=== PATIENT | male | born 1985 | race Caucasian/White ===

== ENCOUNTER → 2017-05-17 | Outpatient (CLI) | payer BC ==
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
== END | disposition home or self-care (01) ==
LOC: SLEEP 10:48
PROVIDERS: ATTEND Internal Medicine
DX: G47.33 Obstructive sleep apnea (adult) (pediatric) (principal); E66.9 Obesity, unspecified; M54.2 Cervicalgia; Z79.1 Long term (current) use of non-steroidal anti-inflammatories (NSAID); Z79.899 Other long term (current) drug therapy; Z68.43 Body mass index [BMI] 50.0-59.9, adult
CPT/HCPCS: 99211

== ENCOUNTER → 2017-07-14 | Outpatient (CLI) | payer OTHER, BC | END | disposition home or self-care (01) | LOC: RADMRIMAIN 09:49 | PROVIDERS: ATTEND Family Medicine | DX: Z53.9 Procedure and treatment not carried out, unspecified reason (principal) ==

== ENCOUNTER → 2017-08-07 | Outpatient (CLI) | payer OTHER, BC ==
--- NOTE | 2017-08-07 07:24 | MR ---
EXAMINATION TYPE: MR cervical spine wo con DATE OF EXAM: 08/07/2017 COMPARISON: NONE HISTORY: Cervicalgia TECHNIQUE: Multiplanar, multisequence images of the cervical spine were acquired. C2-C3: There is posterior spondylosis but no disc herniation or canal stenosis. No foraminal encroach ment. C3-C4: No evidence for degenerative disc disease. No disc bulge/herniation or protrusion. No Canal stenosis. Foramina are patent bilaterally. C4-C5: No evidence for degenerative disc disease. No disc bulge/herniation or protrusion. No Canal stenosis. Foramina are patent bilaterally. C5-C6: No evidence for degenerative disc disease. No disc bulge/herniation or protrusion. No Canal stenosis. Foramina are patent bilaterally. C6-C7: Mild central disc bulging but no canal stenosis or foraminal encroachment. Neural foramina pat ent. C7-T1: No evidence for degenerative disc disease. No disc bulge/herniation or protrusion. No Canal stenosis. Foramina are patent bilaterally. Cervical segments are intact. There is normal alignment. Cervical spinal cord is of immediate asses sment due to artifact. The question of abnormal signal along the posterior margin of the C5-C6 level. This may be artifactual.. Craniovertebral junction relationships are within normal limits. IMPRESSION: 1. Disc bulging C6-C7 with no canal stenosis or foraminal encroachment. 2. Limited assessment of the spinal cord due to artifact. Question of abnormal signal along the posterior margin of the C5-C6 level. This may be artifactual. G gary the limitation exam and the degree of artifact recommend short-term follow-up with contrast. Cor relate clinically to exclude myelitis.
== END ==
LOC: RADMRIMAIN 06:15
PROVIDERS: ATTEND Family Medicine
DX: M50.223 Other cervical disc displacement at C6-C7 level (principal)
CPT/HCPCS: 72141

== ENCOUNTER 2018-05-12 23:47 | Emergency (ER) | payer BC, OTHER ==
[2018-05-13] MEDS ORDERED: IBUPROFEN 600 MG TAB PO STA (01:17)
[2018-05-13] MEDS ORDERED: SODIUM CHLORIDE 0.9% 1,000 ML IV STA (01:17)
[2018-05-13] MEDS ORDERED: ACETAMINOPHEN TAB 500 MG TAB PO STA (01:17)
[2018-05-13] MEDS ORDERED: SODIUM CHLORIDE 0.9% 1,000 ML IV ONE (01:18)
[2018-05-13] MEDS ORDERED: SODIUM CHLORIDE 0.9% 1,000 ML IV SCH (01:30)
[2018-05-13] MEDS ORDERED: KETOROLAC 30 MG/ML 1 ML VIAL IVP STA (01:35)
[2018-05-13] MEDS ORDERED: HYDROcodone/APAP 5-325MG 1 EACH TAB PO STA (02:30)
[2018-05-13 02:45] LABS: Basophils # (A) 0.1 k/uL (0-0.2); Basophils % (A) 0 %; Eosinophils # (A) 0.2 k/uL (0-0.7); Eosinophils % (A) 1 %; HCT 44.2 % (39.0-53.0); HGB 14.8 gm/dL (13.0-17.5); Lymphocytes # (A) 1.9 k/uL (1.0-4.8); Lymphocytes % (A) 12 %; MCH 28.3 pg (25.0-35.0); MCHC 33.4 g/dL (31.0-37.0); MCV 84.7 fL (80.0-100.0); Monocytes # (A) 0.8 k/uL (0-1.0); Monocytes % (A) 5 %; Neutrophils # (A) 12.4 k/uL (1.3-7.7); Neutrophils % (A) 80 %; Platelet Count 280 k/uL (150-450); RBC 5.22 m/uL (4.30-5.90); RDW 14.1 % (11.5-15.5); WBC 15.5 k/uL (3.8-10.6)
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
[2018-05-13 02:58] LABS: ALT 41 U/L (21-72); AST 24 U/L (17-59); Albumin 3.9 g/dL (3.5-5.0); Alkaline Phosphatase 98 U/L (38-126); Anion Gap 7 mmol/L; Blood Urea Nitrogen 17 mg/dL (9-20); Calcium 9.4 mg/dL (8.4-10.2); Carbon Dioxide 24 mmol/L (22-30); Chloride 107 mmol/L (98-107); Glucose 106 mg/dL (74-99); Potassium 4.3 mmol/L (3.5-5.1); Sodium 138 mmol/L (137-145); Total Bilirubin 0.3 mg/dL (0.2-1.3); Total Protein 6.7 g/dL (6.3-8.2)
[2018-05-13 03:38] VITALS: BP 135/68; PULSE 104; RESP 16; TEMP 98.6
[2018-05-13 03:43] LABS: Appearance,Urine Clear (Clear); Bilirubin,Urine Negative (Negative); Blood,Urine Negative (Negative); Color,Urine Yellow; Glucose,Urine (UA) Negative (Negative); Ketones,Urine Negative (Negative); Leukocyte Esterase,Urine Negative (Negative); Nitrite,Urine Negative (Negative); Protein,Urine Negative (Negative); Specific Gravity,Urine 1.018 (1.001-1.035); Urobilinogen,Urine <2.0 mg/dL (<2.0)
== END 2018-05-13 04:15 | disposition home or self-care (01) ==
LOC: EC 05-13 01:40
DX: T67.5XXA Heat exhaustion, unspecified, initial encounter (principal); R00.0 Tachycardia, unspecified; Z86.14 Personal history of Methicillin resistant Staphylococcus aureus infection; Z88.0 Allergy status to penicillin; Z53.20 Procedure and treatment not carried out because of patient's decision for unspecified reasons; X32.XXXA Exposure to sunlight, initial encounter; Y92.814 Boat as the place of occurrence of the external cause
CPT/HCPCS: 36415; 93005; 80053; 84484; 85025; 81003; 99284; 96374; 96361 ×2; J1885

== ENCOUNTER → 2019-05-15 | Outpatient (CLI) | payer BC ==
--- NOTE | 2019-05-15 09:52 | XR ---
EXAMINATION TYPE: XR KUB DATE OF EXAM: 05/15/2019 9:23 AM CLINICAL HISTORY: Right flank pain for 4 days. TECHNIQUE: Two supine KUB images of the abdomen are obtained. COMPARISON: None. FINDINGS: Scattered gas is seen in non-distended stomach and small bowel loops. Gas and fecal materia l is seen in non-distended colon. The visualized osseous structures are intact. IMPRESSION: No definite nephrolithiasis. Overall nonobstructive bowel gas pattern.
== END | disposition home or self-care (01) ==
LOC: RADXRMAIN 09:09
PROVIDERS: ATTEND Family Medicine
DX: R14.3 Flatulence (principal)
CPT/HCPCS: 74018

== ENCOUNTER → 2019-10-02 | Outpatient (CLI) | payer BC ==
--- NOTE | 2019-10-02 11:16 | FL ---
EXAMINATION TYPE: FL barium swallow DATE OF EXAM: 10/02/2019 CLINICAL HISTORY: Gastroesophageal reflux in the supine position. TECHNIQUE: A double contrast esophagram is performed utilizing air and barium. A total of 2.02 marissa nicole of fluoroscopic time was utilized during procedure. 41 fluoroscopic images were saved. COMPARISON: None FINDINGS: The esophagus shows normal motility and emptying into the stomach. No evidence of hiatal h ernia or stricture noted. Severe gastroesophageal reflux was seen during real time performance of thi s study in the supine position to the level of the clavicles. IMPRESSION: Severe gastroesophageal reflux to the level the clavicles on the supine position without hiatal hernia or stricture seen.
== END | disposition home or self-care (01) ==
LOC: RADUSWWP 09:24
PROVIDERS: ATTEND Otolaryngology
DX: K21.9 Gastro-esophageal reflux disease without esophagitis (principal)
CPT/HCPCS: 74220

== ENCOUNTER 2021-07-09 14:17 | Emergency (ER) | payer BC ==
[2021-07-09 14:27] VITALS: RESP 18
[2021-07-09] MEDS ORDERED: SODIUM CHLORIDE 0.9% 500 ML 500 ML IV STA (14:51)
[2021-07-09] MEDS ORDERED: ONDANSETRON 4 MG/2 ML VIAL IVP STA (14:51)
[2021-07-09] MEDS ORDERED: MECLIZINE 12.5 MG TAB PO STA (14:51)
[2021-07-09 15:36] LABS: Basophils # (A) 0.1 k/uL (0-0.2); Basophils % (A) 1 %; Eosinophils # (A) 0.2 k/uL (0-0.7); Eosinophils % (A) 2 %; HCT 48.2 % (39.0-53.0); HGB 16.1 gm/dL (13.0-17.5); Lymphocytes # (A) 2.4 k/uL (1.0-4.8); Lymphocytes % (A) 21 %; MCH 28.9 pg (25.0-35.0); MCHC 33.5 g/dL (31.0-37.0); MCV 86.3 fL (80.0-100.0); Mean Platelet Volume 7.3; Monocytes # (A) 0.8 k/uL (0-1.0); Monocytes % (A) 7 %; Neutrophils % (A) 68 %; Platelet Count 265 k/uL (150-450); RBC 5.59 m/uL (4.30-5.90); RDW 13.9 % (11.5-15.5); WBC 11.7 k/uL (3.8-10.6)
--- NOTE | 2021-07-09 15:40 | ED ---
Dizziness HPI - General Source: patient Mode of arrival: wheelchair Limitations: no limitations <Deven Tran - Last Filed: 07/09/21 17:27> <Kamryn Pulido - Last Filed: 07/10/21 01:19> - General Chief Complaint: Dizziness Stated Complaint: SOB, Dizziness Time Seen by Provider: 07/09/21 14:37 - History of Present Illness Initial Comments: 35-year-old male presenting to the emergency department with the chief complaint of dizziness. Patient states his symptoms have been coming on and off for the past week. States it feels like the room was spinning around him and is associated with nausea but has no vomiting episodes. He denies any lightheadedness or loss of consciousness. States that he woke up this morning and began to feel diaphoretic but had no chest pain. States he did feel a bit short of breath like he cannot take a deep breath. He reports that dizziness is worse whenever he is laying down in the last for a few hours prior to resolution. No previous history of vertigo. Denies any ear pain, visual changes, one-sided weakness or paresthesias. (Deven Tran) - Related Data Home Medications Medication Instructions Recorded Confirmed Chlorthalidone 25 mg PO DAILY 07/09/21 07/09/21 Cholecalciferol (Vitamin D3) 250 mcg PO DAILY 07/09/21 07/09/21 [Vitamin D3 (125 MCG = 5,000 IU)] [place]-3 Fatty Acids/Fish Oil [Fish 2 cap PO DAILY 07/09/21 07/09/21 Oil 1,000 mg Softgel] Previous Rx's Medication Instructions Recorded Meclizine [Antivert] 25 mg PO BID PRN #30 tab 07/09/21 Allergies Allergy/AdvReac Type Severity Reaction Status Date / Time Penicillins Allergy Rash/Hives Verified 07/09/21 17:31 Review of Systems ROS Other: All systems not noted in ROS Statement are negative. <Deven Tran - Last Filed: 07/09/21 17:27> ROS Other: All systems not noted in ROS Statement are negative. <Kamryn Pulido - Last Filed: 07/10/21 01:19> ROS Statement: Those systems with pertinent positive or pertinent negative responses have been documented in the HPI. Past Medical History Past Medical History: No Reported History History of Any Multi-Drug Resistant Organisms: MRSA Date of last positivie culture/infection: 2009 MDRO Source:: Leg Past Surgical History: No Surgical Hx Reported Additional Past Surgical History / Comment(s): left eye Past Psychological History: No Psychological Hx Reported Smoking Status: Vaper Past Alcohol Use History: Occasional Past Drug Use History: None Reported <Deven Tran Last Filed: 07/09/21 17:27> General Exam Limitations: no limitations General appearance: alert, in no apparent distress, obese Head exam: Present: atraumatic, normocephalic, normal inspection Eye exam: Present: normal appearance, PERRL, EOMI Pupils: Present: normal accommodation ENT exam: Present: normal exam, normal oropharynx, mucous membranes moist, TM's normal bilaterally, normal external ear exam Neck exam: Present: normal inspection, full ROM. Absent: tenderness Respiratory exam: Present: normal lung sounds bilaterally. Absent: respiratory distress, wheezes, rales, rhonchi, stridor, chest wall tenderness, accessory muscle use Cardiovascular Exam: Present: regular rate, normal rhythm, normal heart sounds. Absent: systolic murmur, diastolic murmur GI/Abdominal exam: Present: soft. Absent: distended Extremities exam: Present: normal inspection, full ROM, normal capillary refill, other (Palpable DP and PT bilaterally.). Absent: tenderness, pedal edema, joint swelling Back exam: Present: normal inspection, full ROM. Absent: tenderness, CVA tenderness (R), CVA tenderness (L) Neurological exam: Present: alert, oriented X3, CN II-XII intact, normal gait Psychiatric exam: Present: normal affect, normal mood Skin exam: Present: warm, dry, intact, normal color <Deven Tran Last Filed: 07/09/21 17:27> Course Vital Signs 07/09/21 07/09/21 07/09/21 14:25 17:04 17:33 Temperature 98.1 F 98.3 F Pulse Rate 95 77 71 Respiratory 18 18 18 Rate Blood Pressure 141/97 113/58 114/70 O2 Sat by Pulse 99 98 98 Oximetry Medical Decision Making - Lab Data Result diagrams: 07/09/21 15:23 07/09/21 15:23 <Deven Tran Last Filed: 07/09/21 17:27> - Lab Data Result diagrams: 07/09/21 15:23 07/09/21 15:23 <Kamryn Pulido - Last Filed: 07/10/21 01:19> - Medical Decision Making 35-year-old male presents emergency Department with a chief complaint of dizziness. On physical examination, no focal neural deficits. Positive Norm- Hallpike. EKG is nonischemic. Lungs are clear to auscultation. CBC shows mild leukocytosis, 11.3k likely reactive. He did have complaints of some shortness of breath so d-dimer was obtained which was unremarkable. Negative troponin. Covid is negative. UA is unremarkable. Patient was given Antivert initially with IV fluids and antiemetics. On reevaluation, her reports minimal impairment symptoms. I gave the patient Valium which significantly improved his symptoms. Patient may be experiencing benign positional vertigo. Does not have any headaches or any visual changes. On reevaluation, he reports a proven his symptoms and feels comfortable going home. I advised the patient to follow up with his primary care physician. I will give him a prescription for Antivert. Return parameters were thoroughly discussed the patient is understanding and agreeable. Case discussed with Dr. Pulido (Deven Tran) I was available for consultation in the emergency department. The history and physical exam were done by the midlevel provider. I was consulted for this patients care. I reviewed the case with the midlevel provider and based on their presentation of the patient, I agree with the assessment, medical decision making and plan of care as documented. Chart was dictated using [employer] dictation software. Attempts were made to jessenia ect any dictation errors however some typographical errors may persist. Patient was seen during a national state of emergency due to the Covid-19 pandemic. (Kamryn Pulido) - Lab Data Lab Results 07/09/21 07/09/21 07/09/21 Range/Units 15:23 15:23 15:23 WBC 11.7 H (3.8-10.6) k/uL RBC 5.59 (4.30-5.90) m/uL Hgb 16.1 (13.0-17.5) gm/dL Hct 48.2 (39.0-53.0) % MCV 86.3 (80.0-100.0) fL MCH 28.9 (25.0-35.0) pg MCHC 33.5 (31.0-37.0) g/dL RDW 13.9 (11.5-15.5) % Plt Count 265 (150-450) k/uL MPV 7.3 Neutrophils % 68 % Lymphocytes % 21 % Monocytes % 7 % Eosinophils % 2 % Basophils % 1 % Neutrophils # 8.0 H (1.3-7.7) k/uL Lymphocytes # 2.4 (1.0-4.8) k/uL Monocytes # 0.8 (0-1.0) k/uL Eosinophils # 0.2 (0-0.7) k/uL Basophils # 0.1 (0-0.2) k/uL D-Dimer (<0.60) mg/L FEU Sodium 139 (137-145) mmol/L Potassium 3.5 (3.5-5.1) mmol/L Chloride 103 (98-107) mmol/L Carbon Dioxide 26 (22-30) mmol/L Anion Gap 10 mmol/L BUN 23 H (9-20) mg/dL Creatinine 0.82 (0.66-1.25) mg/dL Est GFR (CKD-EPI)AfAm >90 (>60 ml/min/1.73 sqM) Est GFR (CKD-EPI)NonAf >90 (>60 ml/min/1.73 sqM) Glucose 115 H (74-99) mg/dL Calcium 10.0 (8.4-10.2) mg/dL Total Bilirubin 0.4 (0.2-1.3) mg/dL AST 31 (17-59) U/L ALT 34 (4-49) U/L Alkaline Phosphatase 99 (38-126) U/L Troponin I (0.000-0.034) ng/mL Total Protein 7.6 (6.3-8.2) g/dL Albumin 4.3 (3.5-5.0) g/dL Urine Color Yellow Urine Appearance Clear (Clear) Urine pH 5.5 (5.0-8.0) Ur Specific [place] 1.026 (1.001-1.035) Urine Protein Negative (Negative) Urine Glucose (UA) Negative (Negative) Urine Ketones Negative (Negative) Urine Blood Negative (Negative) Urine Nitrite Negative (Negative) Urine Bilirubin Negative (Negative) Urine Urobilinogen <2.0 (<2.0) mg/dL Ur Leukocyte Esterase Negative (Negative) Coronavirus (PCR) (Not Detectd) 07/09/21 07/09/21 07/09/21 Range/Units 15:23 15:23 15:23 WBC (3.8-10.6) k/uL RBC (4.30-5.90) m/uL Hgb (13.0-17.5) gm/dL Hct (39.0-53.0) % MCV (80.0-100.0) fL MCH (25.0-35.0) pg MCHC (31.0-37.0) g/dL RDW (11.5-15.5) % Plt Count (150-450) k/uL MPV Neutrophils % % Lymphocytes % % Monocytes % % Eosinophils % % Basophils % % Neutrophils # (1.3-7.7) k/uL Lymphocytes # (1.0-4.8) k/uL Monocytes # (0-1.0) k/uL Eosinophils # (0-0.7) k/uL Basophils # (0-0.2) k/uL D-Dimer 0.26 (<0.60) mg/L FEU Sodium (137-145) mmol/L Potassium (3.5-5.1) mmol/L Chloride (98-107) mmol/L Carbon Dioxide (22-30) mmol/L Anion Gap mmol/L BUN (9-20) mg/dL Creatinine (0.66-1.25) mg/dL Est GFR (CKD-EPI)AfAm (>60 ml/min/1.73 sqM) Est GFR (CKD-EPI)NonAf (>60 ml/min/1.73 sqM) Glucose (74-99) mg/dL Calcium (8.4-10.2) mg/dL Total Bilirubin (0.2-1.3) mg/dL AST (17-59) U/L ALT (4-49) U/L Alkaline Phosphatase (38-126) U/L Troponin I <0.012 (0.000-0.034) ng/mL Total Protein (6.3-8.2) g/dL Albumin (3.5-5.0) g/dL Urine Color Urine Appearance (Clear) Urine pH (5.0-8.0) Ur Specific [place] (1.001-1.035) Urine Protein (Negative) Urine Glucose (UA) (Negative) Urine Ketones (Negative) Urine Blood (Negative) Urine Nitrite (Negative) Urine Bilirubin (Negative) Urine Urobilinogen (<2.0) mg/dL Ur Leukocyte Esterase (Negative) Coronavirus (PCR) Not Detected (Not Detectd) - EKG Data EKG Comments: Sinus rhythm Ventricular rate 92, DC 156, QRS 90, QTC 447. (Deven Tran) Disposition Is patient prescribed a controlled substance at d/c from ED?: No Time of Disposition: 17:26 <Deven Tran - Last Filed: 07/09/21 17:27> <Kamryn Pulido - Last Filed: 07/10/21 01:19> Clinical Impression: Dizziness Disposition: HOME SELF-CARE Condition: Stable Instructions (If sedation given, give patient instructions): Benign Paroxysmal Positional Vertigo (ED), Dizziness (ED) Additional Instructions: Follow up with her primary care physician. Return to emergency department if sy mptoms worsen. Take prescribed medication as directed. Prescriptions: Meclizine [Antivert] 25 mg PO BID PRN #30 tab PRN Reason: Vertigo Referrals: Jacinto Schofield DO [Primary Care Provider] - 1-2 days
[2021-07-09 15:52] LABS: ALT 34 U/L (4-49); AST 31 U/L (17-59); African American GFR (CKD) >90 (>60 ml/min/1.73 sqM); Albumin 4.3 g/dL (3.5-5.0); Alkaline Phosphatase 99 U/L (38-126); Anion Gap 10 mmol/L; Blood Urea Nitrogen 23 mg/dL (9-20); Carbon Dioxide 26 mmol/L (22-30); Chloride 103 mmol/L (98-107); Glucose 115 mg/dL (74-99); Non-African American GFR(CKD) >90 (>60 ml/min/1.73 sqM); Potassium 3.5 mmol/L (3.5-5.1); Sodium 139 mmol/L (137-145); Total Bilirubin 0.4 mg/dL (0.2-1.3); Total Protein 7.6 g/dL (6.3-8.2)
[2021-07-09 15:53] LABS: Appearance,Urine Clear (Clear); Bilirubin,Urine Negative (Negative); Blood,Urine Negative (Negative); Color,Urine Yellow; Glucose,Urine (UA) Negative (Negative); Ketones,Urine Negative (Negative); Leukocyte Esterase,Urine Negative (Negative); Nitrite,Urine Negative (Negative); PH, Urine 5.5 (5.0-8.0); Protein,Urine Negative (Negative); Specific Gravity,Urine 1.026 (1.001-1.035); Urobilinogen,Urine <2.0 mg/dL (<2.0)
[2021-07-09] MEDS ORDERED: DIAZEPAM 5 MG/ML 2 ML INJ IVP STA (16:33)
[2021-07-09 18:14] VITALS: BP 114/70; PULSE 71; TEMP 98.3
== END 2021-07-09 17:34 | disposition home or self-care (01) ==
LOC: EC 14:17
DX: R42 Dizziness and giddiness (principal); E66.9 Obesity, unspecified; F17.290 Nicotine dependence, other tobacco product, uncomplicated; Z79.899 Other long term (current) drug therapy; Z68.42 Body mass index [BMI] 45.0-49.9, adult
CPT/HCPCS: 36415; 85379; 80053; 84484; 85025; 81003; 87635; 99284; 96374; 96375; 96361 ×2; J3360; J2405

== ENCOUNTER → 2022-02-17 | Outpatient (CLI) | payer BC ==
--- NOTE | 2022-02-19 11:23 | US ---
EXAMINATION TYPE: US venous doppler duplex LE DATE OF EXAM: 02/17/2022 4:39 PM COMPARISON: NONE CLINICAL HISTORY: M79.89 OTHER SPECIFIED SOFT TISSUE DISORDERS. Patient states having redness of legs since Covid vaccine. SIDE PERFORMED: Bilateral TECHNIQUE: The lower extremity deep venous system is examined utilizing real time linear array sonog kaitlin with graded compression, doppler sonography and color-flow sonography. VESSELS IMAGED: Common Femoral Vein Deep Femoral Vein Greater Saphenous Vein * Femoral Vein Popliteal Vein Small Saphenous Vein * Proximal Calf Veins (* superficial vessels) Suboptimal visualization due to patient body habitus There is normal flow, compressibility, vascular waveforms. Right Leg: Negative for DVT Left Leg: Negative for DVT IMPRESSION: No evident deep venous thrombosis within the lower extremities from the level the knee ce ntrally within the limitations of the exam
== END | disposition home or self-care (01) ==
LOC: RADUSWWP 16:18
PROVIDERS: ATTEND Family Medicine
DX: M79.89 Other specified soft tissue disorders (principal)
CPT/HCPCS: 93970

== ENCOUNTER → 2023-06-06 | Outpatient (CLI) | payer BC ==
--- NOTE | 2023-06-06 16:19 | P.SLEEP ---
History of Present Illness DATE: 06/06/2023 CONSULTATION/NEW PATIENT EVALUATION HISTORY OF PRESENT ILLNESS/SLEEP-WAKE EVALUATION: 37 year old gentleman had been evaluated in the sleep center for possible obstructive sleep apnea hypopnea syndrome. Sleep study in 2017 showed obstructive sleep apnea hypopnea syndrome, was at that time patient was not able to get CPAP equipment. SLEEP SCHEDULE: Usually sleep schedule from 10 PM to 5 AM on weekdays and from midnight until 5 AM on weekend. FALLING ASLEEP: Usually no problems with falling asleep. DURING SLEEP: Patient has very loud snoring and witnessed episodes of stop breathing during the sleep. Patient wakes up from sleep up to 6 times with 4 episodes of nocturia. No history of hypnogogical hallucinations, sleep paralysis, or cataplexy. DURING THE DAY/WAKE STATE: In the morning patient wake up tired, has problems with memory, concentration, irritability, anxiety. [place] sleepiness scale is increased to 12. Usually patient doesn't take naps. PAST MEDICAL HISTORY: Swelling of the legs. PAST SURGICAL HISTORY: Left eye surgery for removing or an body may need years ago. MEDICATIONS: Chlorthalidone 25 mg once a day. SOCIAL HISTORY: Negative for smoking, alcohol consumption occasional. FAMILY HISTORY: Sleep apnea, diabetes. REVIEW OF SYSTEMS: Loud snoring, multiple awakenings from sleep. No fevers. No double vision. No recent chest pain. No shortness of breath. No abdominal pain. No bleeding episodes. No blood in urine. No seizure episodes. PHYSICAL EXAMINATION: GENERAL: A pleasant patient without any distress. VITAL SIGNS: BP 124/84 , HR 98 , RR 18 , weight 359.4 pounds, height 5 foot 7 inches, body mass index 55.0 . HEENT: PERRLA, EOMI. Evaluation of oropharynx showed tongue protrudes midline, low position of soft palate Mallampati 4. NECK: Supple. No JVD. Thyroid is not palpable. 19.5 inches in circumference. LUNGS: Clear to percussion and to auscultation. Good air exchange. No wheezing or rhonchi. HEART: S1, S2 regular. No murmurs, gallops or rubs. ABDOMEN: Soft and nontender. Bowel sounds are present. No organomegaly appreciated. EXTREMITIES: No clubbing or cyanosis, 1-2 plus swelling. BEEF SPECIALIST: Awake, alert, and oriented x3. Cranial nerves 2 to 7 intact. There is no fasciculation or atrophy noted. No focal deficits observed. ASSESSMENT: 1. Loud snoring, witnessed sleep apneas, extremely low position of soft palate Mallampati 4, extremely wide neck 19.5 inches in circumference, sleepiness with [place] Sleepiness Scale 12, history of obstructive sleep apnea in the past. Obstructive sleep apnea hypopnea syndrome. 2. Morbid obesity, body mass index 55.0. 3. Swelling of the legs. 4. Status post left off surgery for the foreign body to remove. 5 status post nasal fracture and age of 17. 5 . History of back and neck problems. PLAN: 1. Polysomnography for evaluation of patient's breathing during sleep. 2. CPAP/BiPAP titration correction of respiratory abnormalities during sleep. 3. Preferable position during sleep on the side. 4. No driving if patient feels any sleepiness. Patient is aware of civil and criminal liability for unsafe driving. 5. Sleep hygiene with regular sleep time for at least 7.5-8 hours. 6. Watching and aggressive losing weight. Thank you very much for referring this patient for consultation. Sincerely, Alvaro Reynolds MD, PhD, FAASM. Diplomat of [place] [employer], Sleep Medicine Board by [employer] Switching Clerk of [facility] [place] Past Medical History Past Medical History: No Reported History History of Any Multi-Drug Resistant Organisms: MRSA Date of last positivie culture/infection: 2009 MDRO Source:: Leg Past Surgical History: No Surgical Hx Reported Additional Past Surgical History / Comment(s): left eye Past Psychological History: No Psychological Hx Reported Smoking Status: Vaper Past Alcohol Use History: Occasional Past Drug Use History: None Reported Medications and Allergies Home Medications Medication Instructions Recorded Confirmed Type Chlorthalidone 25 mg PO DAILY 07/09/21 07/09/21 History Cholecalciferol (Vitamin D3) 250 mcg PO DAILY 07/09/21 07/09/21 History [Vitamin D3 (125 MCG = 5,000 IU)] Meclizine [Antivert] 25 mg PO BID PRN #30 tab 07/09/21 Rx [place]-3 Fatty Acids/Fish Oil [Fish 2 cap PO DAILY 07/09/21 07/09/21 History Oil 1,000 mg Softgel] Allergies Allergy/AdvReac Type Severity Reaction Status Date / Time Penicillins Allergy Rash/Hives Verified 07/09/21 17:31 Sleep Note - Sleep Note Sleep Note: Temperature: Pulse Rate: Respiratory Rate: Blood Pressure: SpO2: Height: Weight: BMI: Neck Circumference:
== END ==
LOC: 3 N SLEEP 15:42
PROVIDERS: ATTEND Internal Medicine
DX: G47.33 Obstructive sleep apnea (adult) (pediatric) (principal); E66.01 Morbid (severe) obesity due to excess calories; M79.89 Other specified soft tissue disorders; F17.290 Nicotine dependence, other tobacco product, uncomplicated; Z98.890 Other specified postprocedural states; Z68.43 Body mass index [BMI] 50.0-59.9, adult; Z87.39 Personal history of other diseases of the musculoskeletal system and connective tissue; Z88.0 Allergy status to penicillin
CPT/HCPCS: 99211

== ENCOUNTER → 2023-07-17 | Outpatient (CLI) | payer BC ==
--- NOTE | 2023-07-19 10:27 | P.PCN ---
Description of Procedure: CLINICAL: A home sleep apnea test has been done for confirmation of possible obstructive sleep apnea-hypopnea syndrome. DESCRIPTION OF PROCEDURE: RESULTS: Recording time was 7 hours 4 minutes. Evaluation time was 6 hours 34 minutes. Evaluation time is sufficient for making conclusion about results of the test. Raw data of sleep recording has been reviewed and is adequate. Respiratory channel showed 5 apneas and 140 hypopneas. Apnea-hypopnea index was 22.2 per hour, which included obstructive apnea index 0.8, central apnea index 0, mixed apnea index 0. Pulse rate in the range between minimum 52, maximum 114, average 77 by computer calculation. Lowest desaturation was 82%. IMPRESSION: 1. Moderate Obstructive Sleep Apnea Hypopnea Syndrome. 2. Morbid obesity Please see other impressions from consultation. PLAN: 1. The patient will CPAP if necessary BiPAP titration for correction of respiratory abnormallities during sleep. 2. I will see patient for follow up visit to discuss results of the test, evaluate clinical response on treatment with PAP therapy and make any necessary adjustments related to mask fitting, pressure, and humidification. 3. Watching weight. 4. Sleep hygiene with regular time in bed for at least 8 hours. 5. No driving if feeling any sleepiness. Thank you very much for allowing me to participate in the management of your patient. Sincerely, Alvaro Reynolds MD, PhD, FAASM Diplomat of [place] [employer] Sleep Medicine Board of [place] [employer] Medicine Beef Specialist of [facility] [place]
== END ==
LOC: 3 N SLEEP 16:11
PROVIDERS: ATTEND Internal Medicine
DX: G47.33 Obstructive sleep apnea (adult) (pediatric) (principal); Z88.0 Allergy status to penicillin

== ENCOUNTER 2023-09-12 19:19 | Outpatient (CLI) | payer BC ==
--- NOTE | 2023-09-13 12:33 | P.PCN ---
Description of Procedure: CLINICAL: Titration with positive air pressure has been done for correction of respiratory abnormalities during sleep. DESCRIPTION OF PROCEDURE: The standard montage for clinical polysomnography included the electroencephalogram, the electrocardiogram, the mentalis surface electromyography and Lead II cardiography. The respiratory battery consisted of measurements of nasal /buccal air flow, pressure transducer measurements from the nose, thoracic and /or abdominal effort and intercostal surface electromyography. Video monitoring has been done to check for any parasomnia events. Nocturnal oxyhemoglobin saturations were obtained by finger oximetry. Step-metz titration with positive airway pressure was utilized to control respiratory events. Raw data of sleep recording has been reviewed and is adequate. RESULTS: Sleep efficiency was normal 92.8 %. Latency to sleep onset was short 5.5 minutes.]. Sleep architecture showed stage N1 was short 2.2 %, Delta sleep was borderline 5.6 %, REM sleep was high 29.3 %. Heart rate was minimum 68 BPM, maximum 85 BPM, average 75 BPM. EMG showed 0.7 periodic limb movements per hour with 0 micriarousals per hour. PAP titration have been done with CPAP up to the pressure 14 cm H2O. The best results were at the pressure 14 cm H2O. Apnea hypopnea index reduced to 0.9. IMPRESSION: 1. Moderate Obstructive sleep apnea hypopnea syndrome on controle with PAP treatment. 2. No significant periodic limb movements have been documented. Please see other impressions from consultation. PLAN: 1. The patient will have treatment with positive air pressure equipment with the level of pressure AutoPAP 7-15 cm H2O and should use it every night for the whole night. 2. Watching and losing weight. 3. Sleep hygiene with regular time in bed for at least 8 hours. 4. No driving if feeling any sleepiness. 5. I will see the patient for follow up visit to explain the results of the test, recommendations, check compliance with treatment and make any necessary adjustment related to mask fitting, pressure and humidification. Thank you very much for allowing me to participate in the management of your patient. Sincerely, Alvaro Reynolds MD, PhD, FAASM Diplomat of [employer] Sleep Medicine Board of [employer] Medicine Log Handling Equipment Operator of [facility] [place]
== END 2023-09-13 05:45 | disposition home or self-care (01) ==
LOC: 3 N SLEEP 19:19
PROVIDERS: ATTEND Internal Medicine
DX: G47.33 Obstructive sleep apnea (adult) (pediatric) (principal); Z88.0 Allergy status to penicillin
CPT/HCPCS: 95811

== ENCOUNTER → 2023-12-12 | Outpatient (CLI) | payer BC ==
--- NOTE | 2023-12-12 17:27 | P.PN ---
Subjective DATE: 12/12/2023 FOLLOW UP VISIT. Patient with obstructive sleep apnea hypopnea syndrome return to sleep center for follow-up visit. Recently patient had sleep study which documented obstructive sleep apnea hypopnea syndrome. Patient was initiated on PAP therapy and today is first visit after treatment was started. Patient feels better while using CPAP equipment with regarding to his sleep quality and feeling during the day Patient was able to use PAP equipment most of the nights, but sometimes on the second part of the night patient takes mask off. Presently patient is using full face mask. Patient had episode of significant condensation of water in the tube when the water came onto his nose. [place] sleepiness scale is increased to 13. I checked information from PAP unit. PAP unit pressure 7-15, average 13.6 cm H2O. Usage is CPAP unit 81% and 48% for more than 4 hours, average 4.5 hours per night. Leak is 18.5 l/m, which is in acceptable range. Apnea Hypopnea Index is 0.9, which is normal. MEDICATIONS:1. Chlorthalidone 25 mg once a day During physical exam: GENERAL: A pleasant patient without any distress. VITAL SIGNS: BP 143/95, HR 102, RR 18 , weight 390.8, temperature 98.1, oxygen saturation at room air 98 . HEENT: PERRLA, EOMI.low position of soft palate, Mallapati 4 . NECK: Supple. No JVD. LUNGS: Clear to percussion and to auscultation. Good air exchange. No wheezing or rhonchi. HEART: S1, S2 regular. ABDOMEN: Soft and nontender. Obese EXTREMITIES: No clubbing or cyanosis. FISHING BOAT CAPTAIN: Awake, alert, and oriented x3. No focal deficit. Impressions: 1. Obstructive sleep apnea-hypopnea syndrome in moderate range by results of home sleep apnea test, which may underestimate severity of sleep apnea.. Patient used CPAP equipment 81% of nights and 48% of nights for more than 4 hours. Patient did not know how to regulate temperature in the tube, had episode of wa ter running to theend after that patient did not use CPAP unit for several days. 2. Obesity in morbid range, patient increased his wait on about 30 pounds since previous visit. 3. History of swelling of the legs. 4. Status post left eye surgery for removing foreign body. 5. Status post nasal fracture at the age of 17. Plan: 1. Continue using PAP equipment every night for the whole night. Patient will have another trial period. Patient promised to follow all recommendations. 2. We will try nasal pillow mask with nasal strips and chinstrap. 3. PAP unit should stay lower then position of the head. 4. Advised patient to remove all remaining water from humidifier canister daily and make it dry after each usage. Refill canister with fresh distilled water before each usage. 5. I teach patient how to regulate temperature in the tube, and temperature in the tube was increased to 80 to prevent condensation. 6. Precautions related to driving. No driving if feel any sleepiness. 7. I will maintain prescription for PAP supplies including mask, tube, filters. 8. Follow up visit in 1-2 months or earlier if patient has any problems. 9. Watching and losing weight. Thank you very much for allowing me to participate in the management of your patient. Alvaro Reynolds MD, PhD, FAASM. Diplomat of [place] [employer], Sleep Medicine Board by [place] [employer] Marketing Officer of [facility] [place]
== END ==
LOC: 3 N SLEEP 15:46
PROVIDERS: ATTEND Internal Medicine
DX: G47.33 Obstructive sleep apnea (adult) (pediatric) (principal); E66.01 Morbid (severe) obesity due to excess calories; Z87.2 Personal history of diseases of the skin and subcutaneous tissue; Z98.890 Other specified postprocedural states; Z87.81 Personal history of (healed) traumatic fracture; Z99.89 Dependence on other enabling machines and devices; Z88.0 Allergy status to penicillin
CPT/HCPCS: 99212

== ENCOUNTER → 2024-02-07 | Outpatient (CLI) | payer BC ==
[2024-02-07 17:00] VITALS: BP 139/84; PULSE 90; RESP 18; TEMP 98.2
--- NOTE | 2024-02-07 17:16 | P.PN ---
Subjective DATE: [] FOLLOW UP VISIT. Patient with obstructive sleep apnea hypopnea syndrome return to sleep center for follow-up visit. Information from previous visit have been reviewed. This is first visit after patient received new CPAP unit. Recent sleep study showed moderate obstructive sleep apnea hypopnea syndrome. Patient is using PAP equipment every night for the whole night, getting PAP supplies in time. The patient does not have significant problems with the mask, PAP unit and humidification. Adrian sleepiness scale is increased to 14. I checked information from PAP unit. PAP unit pressure 7-15, average 13.7 cm H2O. Usage is 100% and 90% for more then 4 hours, average 6 hours per night. Leak is 24.1 l/m, which is in acceptable range. Apnea Hypopnea Index is 1.1, which is normal. MEDICATIONS:1. Chlorthalidone 25 mg once a day During physical exam: GENERAL: A pleasant patient without any distress. VITAL SIGNS: Please see below. HEENT: PERRLA, EOMI.low position of soft palate, Mallapati 4 . NECK: Supple. No JVD. LUNGS: Clear to percussion and to auscultation. Good air exchange. No wheezing or rhonchi. HEART: S1, S2 regular. ABDOMEN: Soft and nontender. Obese EXTREMITIES: No clubbing or cyanosis. SUPPORT DIRECTOR: Awake, alert, and oriented x3. No focal deficit. Impressions: 1. Obstructive sleep apnea-hypopnea syndrome. Patient demonstrated good compliance with treatment, benefiting from treatment. 2. Obesity, weight is 403 pounds, which is in about 50 pounds more than during previous visit. 3. Status post left eye surgery for removing foreign body. 4. Status post nasal fracture in the age of 17. 5. History of back and neck problems. Plan: 1. Continue using PAP equipment every night for the whole night. 2. To change air filter at least 1-2 times per month. 3. PAP unit should stay lower then position of the head. 4. Advised patient to remove all remaining water from humidifier canister daily and make it dry after each usage. Refill canister with fresh distilled water before each usage. 5. Sleep hygiene with regular time in bed for at least 8 hours. 6. Precautions related to driving. No driving if feel any sleepiness. 7. I will maintain prescription for PAP supplies including mask, tube, filters. 8. Follow up visit in 6 months or earlier if patient has any problems. 9. Watching and losing weight. Thank you very much for allowing me to participate in the management of your patient. Alvaro Reynolds MD, PhD, FAASM. Diplomat of [place] [employer], Sleep Medicine Board by [place] [employer] [facility] Objective - Vital Signs Vital signs: Vital Signs Temp 98.2 F 02/07/24 16:40 Pulse 90 02/07/24 16:40 Resp 18 02/07/24 16:40 BP 139/84 02/07/24 16:40 Pulse Ox 95 02/07/24 16:40 FiO2 Intake & Output 02/06/24 02/07/24 02/07/24 18:59 06:59 18:59 Weight 182.798 kg
== END ==
LOC: 3 N SLEEP 15:58
PROVIDERS: ATTEND Internal Medicine
DX: G47.33 Obstructive sleep apnea (adult) (pediatric) (principal); E66.9 Obesity, unspecified; Z98.890 Other specified postprocedural states; Z99.89 Dependence on other enabling machines and devices; Z87.39 Personal history of other diseases of the musculoskeletal system and connective tissue; Z88.0 Allergy status to penicillin
CPT/HCPCS: 99212

== ENCOUNTER 2024-09-15 13:43 | Emergency (ER) | payer BC ==
[2024-09-15 13:48] VITALS: RESP 18
--- NOTE | 2024-09-15 14:33 | ED ---
Chest Pain HPI - General Source: patient, RN notes reviewed Mode of arrival: ambulatory Limitations: no limitations <Mima Estrada - Last Filed: 09/15/24 18:50> <Kamryn Pulido - Last Filed: 09/16/24 21:29> - General Chief Complaint: Chest Pain Stated Complaint: chest pain Time Seen by Provider: 09/15/24 13:58 - History of Present Illness Initial Comments: Quick [id number] male history of diabetes presents emerged part chief complaint of stabbing left-sided chest pain that is radiating into his left upper arm and axilla that started a few hours prior to arrival. Endorses mild shortness of breath as well and sweating with intermittent pain. Denies nausea. (Mima Estrada) 38-year-old male with past medical history of diabetes on metformin who presents emergency department reporting left axillary pain. States that last night he started having pain which started in his axilla and radiates to his left chest wall. The area is significantly tender to touch. It is also worse with movement. He denies any numbness, tingling or weakness in the left upper extremity. He took a Flexeril last night and states that it did not help this pain. He admits to mild shortness of breath. Denies nausea. No history of cardiac disease. Denies history of DVT or PE. No calf pain or swelling. Due to risk factors related to heart disease he does present to get his pain evaluated. He denies any abdominal pain. No numbness, tingling or weakness in his lower extremities. No other alleviating, precipitating modifying factors (Kamryn Pulido) - Related Data Home Medications Medication Instructions Recorded Confirmed Chlorthalidone 25 mg PO DAILY 07/09/21 09/15/24 Albuterol Sulfate [Albuterol 2 puff PO RT-Q4H PRN 09/15/24 09/15/24 Sulfate Hfa] Cyclobenzaprine [Flexeril] 10 mg PO TID PRN 09/15/24 09/15/24 Doxycycline [Vibramycin] 100 mg PO BID 09/15/24 09/15/24 metFORMIN HCL [Glucophage] See Taper PO BID 09/15/24 09/15/24 Previous Rx's Medication Instructions Recorded HYDROcodone/APAP 5-325MG [Collins 1 tab PO Q6HR PRN 3 Days #12 tab 09/15/24 5-325] Lidocaine 5% Patch [Lidoderm] 1 patch TOPICAL DAILY #30 patch 09/15/24 Allergies Allergy/AdvReac Type Severity Reaction Status Date / Time No Known Allergies Allergy Verified 09/15/24 18:07 Review of Systems ROS Other: All systems not noted in ROS Statement are negative. <Mima Estrada - Last Filed: 09/15/24 18:50> ROS Other: All systems not noted in ROS Statement are negative. <Kamryn Pulido - Last Filed: 09/16/24 21:29> ROS Statement: Those systems with pertinent positive or pertinent negative responses have been documented in the HPI. Past Medical History Past Medical History: Diabetes Mellitus, Renal Disease History of Any Multi-Drug Resistant Organisms: MRSA Date of last positivie culture/infection: 2009 MDRO Source:: Leg Past Surgical History: No Surgical Hx Reported Additional Past Surgical History / Comment(s): left eye Past Psychological History: No Psychological Hx Reported Smoking Status: Never smoker Past Alcohol Use History: Occasional Past Drug Use History: None Reported <Mima Estrada - Last Filed: 09/15/24 18:50> General Exam Limitations: no limitations <LaurieMima jacinto - Last Filed: 09/15/24 18:50> General appearance: alert, in no apparent distress Head exam: Present: atraumatic, normocephalic, normal inspection Eye exam: Present: normal appearance, PERRL, EOMI. Absent: scleral icterus, conjunctival injection, periorbital swelling ENT exam: Present: normal exam, mucous membranes moist Neck exam: Present: normal inspection. Absent: tenderness, meningismus, lymphadenopathy Respiratory exam: Present: normal lung sounds bilaterally. Absent: respiratory distress, wheezes, rales, rhonchi, stridor Cardiovascular Exam: Present: regular rate, normal rhythm, normal heart sounds. Absent: systolic murmur, diastolic murmur, rubs, gallop, clicks GI/Abdominal exam: Present: soft, normal bowel sounds. Absent: distended, tenderness, guarding, rebound, rigid Extremities exam: Present: normal inspection, full ROM, tenderness (To palpation of the left axilla. No lymphadenopathy. No swelling. No erythema. Pain does radiate along the pectoral muscle to the chest wall), normal capillary refill, other (2+ radial and ulnar pulses bilaterally). Absent: pedal edema, joint swelling, calf tenderness Back exam: Present: normal inspection Neurological exam: Present: alert, oriented X3, CN II-XII intact Psychiatric exam: Present: normal affect, normal mood Skin exam: Present: warm, dry, intact, normal color. Absent: rash <Kamryn Pulido - Last Filed: 09/16/24 21:29> - General Exam Comments Initial Comments: Visual Physical Exam Vital signs reviewed General: Well-appearing, nontoxic, no acute distress. Head: Normocephalic, atraumatic Eyes: PERRLA, EOMI ENT: Airway patent Chest: Nonlabored breathing Skin: No visual rash, normal skin tone Neuro: Alert and oriented 3 Musculoskeletal: No gross abnormalities (Mima Estrada) Course Vital Signs 09/15/24 09/15/24 09/15/24 13:45 18:06 19:34 Temperature 98.1 F 98 F Pulse Rate 108 H 98 75 Respiratory 18 18 18 Rate Blood Pressure 151/90 130/78 134/89 O2 Sat by Pulse 98 96 97 Oximetry Chest Pain MDM <Mima Estrada - Last Filed: 09/15/24 18:50> <Kamryn Pulido - Last Filed: 09/16/24 21:29> - MDM I completed the quick note portion of this chart signed Miam Estrada PA-C (Mima Estrada) Was pt. sent in by a medical professional or institution ([facility], [facility], urgent care, hospital, or [facility]...) When possible be specific @ -No Did you speak to anyone other than the patient for history (EMS, parent, family, police, friend...)? What history was obtained from this source @ -No Did you review nursing and triage notes (agree or disagree)? Why? @ -I reviewed and agree with nursing and triage notes Were old charts reviewed (outside hosp., previous admission, EMS record, old EKG, old radiological studies, urgent care reports/EKG's, [facility] records)? Report findings @ -No old charts were reviewed Differential Diagnosis (chest pain, altered mental status, abdominal pain women, abdominal pain men, vaginal bleeding, weakness, fever, dyspnea, syncope, headache, dizziness, GI bleed, back pain, seizure, CVA, palpatations, mental health, musculoskeletal)? @ -Differential Musculoskeletal Muscular strain, contusion, ligament sprain, fracture, arthritis, septic arthritis, bursitis, cellulitis, muscle spasm, nerve compression, DVT, arterial occlusion, herpes zoster, electrolyte abnormality, tumor.... This is not meant to be in all inclusive list EKG interpreted by me (3pts min.). @ -Yes and demonstrates sinus tachycardia with a rate of 102. NE interval 167. QRS 99. QTc of 402. No acute ST segment elevations or depressions X-rays interpreted by me (1pt min.). @ -Yes and demonstrates no acute process CT interpreted by me (1pt min.). @ -None done U/S interpreted by me (1pt. min.). @ -Yes and demonstrates no acute process What testing was considered but not performed or refused? (CT, X-rays, U/S, labs)? Why? @ -None What meds were considered but not given or refused? Why? @ -None Did you discuss the management of the patient with other professionals (professionals i.e. , PA, BLOCK PLACER, lab, RT, psych nurse, social worker school, lens mold setter, teacher, agricultural technical officer, director case management)? Give summary @ -No Was smoking cessation discussed for >3mins.? @ -No Was critical care preformed (if so, how long)? @ -No Were there social determinants of health that impacted care today? How? (Homelessness, low income, unemployed, alcoholism, drug addiction, transportation, low edu. Level, literacy, decrease access to med. care, long-term, rehab)? @ -No Was there de-escalation of care discussed even if they declined (Discuss DNR or withdrawal of care, Hospice)? DNR status @ -No What co-morbidities impacted this encounter? (DM, HTN, Smoking, COPD, CAD, Cancer, CVA, ARF, Chemo, Hep., AIDS, mental health diagnosis, sleep apnea, morbid obesity)? @ -Diabetes Was patient admitted / discharged? Hospital course, mention meds given and route, prescriptions, significant lab abnormalities, going to OR and other pertinent info. @ -Upon arrival patient seen and evaluated in bed 26. Thorough history and physical exam was performed. IV access was established. Laboratory studies are conducted. He was given a dose of Toradol. Chest x-ray was performed followed by an ultrasound of the area. Results are discussed with the patient. Chest pain does seem musculoskeletal in nature due to worsening of pain with palpation and movement. EKG and laboratory studies are within normal limits. Patient recently did have a stress test however I do feel that at this time he should follow-up with his primary care doctor and may require further imaging if his pain persist. He denies any trauma. I did recommend placing warm compresses to the site. No heavy lifting. He will be prescribed pain medications to take for a short period of time. He needs to see his doctor in 2 to 4 days. Return for any new or worsening symptoms. Patient agreeable plan was discharged home in stable condition Undiagnosed new problem with uncertain prognosis? @ -Yes Drug Therapy requiring intensive monitoring for toxicity (Heparin, Nitro, Insulin, Cardizem)? @ -No Were any procedures done? @ -No Diagnosis/symptom? @ -Acute left axillary pain, chest wall pain Acute, or Chronic, or Acute on Chronic? @ -Acute Uncomplicated (without systemic symptoms) or Complicated (systemic symptoms)? @ -Complicated Side effects of treatment? @ -No Exacerbation, Progression, or Severe Exacerbation? @ -No Poses a threat to life or bodily function? How? (Chest pain, [place], [place], pneumonia, PE, COPD, DKA, ARF, appy, cholecystitis, CVA, Diverticulitis, Homicidal, Suicidal, threat to staff... and all critical care pts) @ -No (Kamryn Pulido) Disposition <Mima Estrada - Last Filed: 09/15/24 18:50> Is patient prescribed a controlled substance at d/c from ED?: Yes When asked, does pt state using other controlled substances?: No If prescribed controlled substance>3 days was MAPS reviewed?: Prescribed <3 Days If opioid is for acute pain is fill amount 7 days or less?: Yes Time of Disposition: 19:26 <Kamryn Pulido - Last Filed: 09/16/24 21:29> Clinical Impression: Chest wall pain Disposition: HOME SELF-CARE Condition: Stable Instructions (If sedation given, give patient instructions): Chest Pain (ED) Additional Instructions: Please wear the Lidoderm patches for pain control. Use the Collins sparingly. Follow-up with your doctor within 2 to 4 days for reevaluation of your symptoms. Return for any new or worsening symptoms Prescriptions: Lidocaine 5% Patch [Lidoderm] 1 patch TOPICAL DAILY #30 patch HYDROcodone/APAP 5-325MG [Collins 5-325] 1 tab PO Q6HR PRN 3 Days #12 tab PRN Reason: Severe Breakthrough Pain Referrals: Jacinto Schofield DO [Primary Care Provider] - 1-2 days
--- NOTE | 2024-09-15 14:52 | XR ---
EXAMINATION TYPE: XR chest 2V DATE OF EXAM: 09/15/2024 CLINICAL HISTORY: Chest pain TECHNIQUE: Frontal and lateral views of the chest are obtained. COMPARISON: None FINDINGS: There is no focal air space opacity, pleural effusion, or pneumothorax seen. The cardiac silhouette size is within normal limits. The osseous structures are intact. IMPRESSION: No acute cardiopulmonary process. [facility], , 09/15/2024 2:49 PM
[2024-09-15 15:17] LABS: Basophils # (A) 0.1 k/uL (0-0.2); Basophils % (A) 1 %; Eosinophils # (A) 0.2 k/uL (0-0.7); Eosinophils % (A) 2 %; HCT 42.9 % (39.0-53.0); HGB 13.8 gm/dL (13.0-17.5); Lymphocytes # (A) 2.6 k/uL (1.0-4.8); Lymphocytes % (A) 21 %; MCH 28.4 pg (25.0-35.0); MCHC 32.2 g/dL (31.0-37.0); MCV 88.4 fL (80.0-100.0); Mean Platelet Volume 7.4; Monocytes # (A) 0.6 k/uL (0-1.0); Monocytes % (A) 5 %; Neutrophils # (A) 8.5 k/uL (1.3-7.7); Neutrophils % (A) 70 %; Platelet Count 227 k/uL (150-450); RBC 4.85 m/uL (4.30-5.90); RDW 14.2 % (11.5-15.5); WBC 12.2 k/uL (3.8-10.6)
[2024-09-15 15:31] LABS: ALT 50 U/L (4-49); AST 39 U/L (17-59); African American GFR (CKD) >90 (>60 ml/min/1.73 sqM); Alkaline Phosphatase 83 U/L (38-126); Anion Gap 6 mmol/L; Blood Urea Nitrogen 16 mg/dL (9-20); Calcium 9.5 mg/dL (8.4-10.2); Carbon Dioxide 30 mmol/L (22-30); Chloride 103 mmol/L (98-107); Glucose 96 mg/dL (74-99); Lipase 400 U/L (23-300); Magnesium 1.7 mg/dL (1.6-2.3); Non-African American GFR(CKD) >90 (>60 ml/min/1.73 sqM); Potassium 3.8 mmol/L (3.5-5.1); Sodium 139 mmol/L (137-145); Total Bilirubin 0.3 mg/dL (0.2-1.3)
[2024-09-15 16:13] LABS: INR 0.9 (<1.2); Partial Thromboplastin Time 25.8 sec (22.0-30.0); Prothrombin Time 10.4 sec (10.0-12.5)
[2024-09-15] MEDS: KETOROLAC 15 MG/ML 1 ML VIAL IVP STA (17:04)
--- NOTE | 2024-09-15 18:37 | US ---
EXAMINATION TYPE: US axilla LT DATE OF EXAM: 09/15/2024 COMPARISON: NONE CLINICAL INDICATION: Male, 38 years old with history of left axillary pain, swelling; Patient states left axillary pain that wraps into chest since yesterday TECHNIQUE: Scanned patients area of concern, left axilla FINDINGS: No sonographic abnormalities identified today in patients area of concern IMPRESSION: No sonographic abnormality in the left axillary region of interest. [facility], , 09/15/2024 6:35 PM
[2024-09-15 19:36] VITALS: BP 134/89; PULSE 75; TEMP 98
== END 2024-09-15 19:36 | disposition home or self-care (01) ==
LOC: EC 13:43
DX: R07.89 Other chest pain (principal); E11.9 Type 2 diabetes mellitus without complications; Z79.84 Long term (current) use of oral hypoglycemic drugs
CPT/HCPCS: 36415; 93005; 85379; 80053; 83690; 83735; 84484; 85025; 85610; 85730; 71046; 76882; 99284; 96374; J1885; 99285

== ENCOUNTER 2024-12-19 09:49 | Emergency (ER) | payer BC ==
[2024-12-19 09:57] VITALS: TEMP 97.8
--- NOTE | 2024-12-19 10:16 | ED ---
Dizziness HPI - General Chief Complaint: Dizziness Stated Complaint: Dizziness Time Seen by Provider: 12/19/24 10:03 Source: patient, RN notes reviewed Mode of arrival: ambulatory Limitations: no limitations - History of Present Illness Initial Comments: This is a 3-year-old male with history of DM and renal disease presenting with syncopal episode x 2 days ago. Patient states he was at his computer at 2100 when he suddenly felt a "pop" in the back of his head with associated jaw locking, facial numbness and possible unwitnessed syncopal episode for an undetermined amount of time. Endorses ongoing, intermittently occipital head pressure that worsens with activity, vision/hearing and balance changes. Patient denies history of similar event, confusion following syncopal episode, biting tongue or urinary incontinence. Denies history of seizures, falling out of chair, striking head, neck pain. Patient endorses use of chlorthalidone and Januvia. MD Complaint: dizziness Onset/Timin -: days(s) Timing: sudden onset Description: lightheadedness, off-balance History of Same: No History of Trauma: No - Related Data Home Medications Medication Instructions Recorded Confirmed Chlorthalidone 50 mg PO DAILY 12/19/24 12/19/24 sitaGLIPtin [Januvia] 100 mg PO DAILY 12/19/24 12/19/24 Allergies Allergy/AdvReac Type Severity Reaction Status Date / Time Penicillins Allergy Unknown Verified 12/19/24 10:54 Childhood Review of Systems ROS Statement: Those systems with pertinent positive or pertinent negative responses have been documented in the HPI. ROS Other: All systems not noted in ROS Statement are negative. Past Medical History Past Medical History: Diabetes Mellitus, Renal Disease History of Any Multi-Drug Resistant Organisms: MRSA Date of last positivie culture/infection: 2009 MDRO Source:: Leg Past Surgical History: No Surgical Hx Reported Additional Past Surgical History / Comment(s): left eye Past Psychological History: No Psychological Hx Reported Smoking Status: Never smoker Past Alcohol Use History: Occasional Past Drug Use History: None Reported General Exam Limitations: no limitations General appearance: alert, in no apparent distress Head exam: Present: atraumatic, normocephalic, normal inspection Eye exam: Present: normal appearance, PERRL, EOMI. Absent: scleral icterus, conjunctival injection, periorbital swelling ENT exam: Present: normal exam, mucous membranes moist Neck exam: Present: normal inspection. Absent: tenderness, meningismus, lymphadenopathy Respiratory exam: Present: normal lung sounds bilaterally. Absent: respiratory distress, wheezes, rales, rhonchi, stridor Cardiovascular Exam: Present: regular rate, normal rhythm, normal heart sounds. Absent: systolic murmur, diastolic murmur, rubs, gallop, clicks GI/Abdominal exam: Present: soft, normal bowel sounds. Absent: distended, tenderness, guarding, rebound, rigid Extremities exam: Present: normal inspection, full ROM, normal capillary refill. Absent: tenderness, pedal edema, joint swelling, calf tenderness Back exam: Present: normal inspection Neurological exam: Present: alert, oriented X3, CN II-XII intact, other ([place] stroke and cerebellar tests normal) Psychiatric exam: Present: normal affect, normal mood Skin exam: Present: warm, dry, intact, normal color. Absent: rash Course Vital Signs 12/19/24 12/19/24 12/19/24 09:54 11:00 13:33 Temperature 97.8 F Pulse Rate 99 89 93 Respiratory 20 18 18 Rate Blood Pressure 147/85 134/92 134/97 O2 Sat by Pulse 100 97 100 Oximetry Medical Decision Making - Medical Decision Making Was pt. sent in by a medical professional or institution (, PA, DIRECTOR PARK, urgent care, hospital, or correction...) When possible be specific @ -No Did you speak to anyone other than the patient for history (EMS, parent, family, police, friend...)? What history was obtained from this source @ -No Did you review nursing and triage notes (agree or disagree)? Why? @ -I reviewed and agree with nursing and triage notes Were old charts reviewed (outside hosp., previous admission, EMS record, old EKG, old radiological studies, urgent care reports/EKG's, correction records)? Report findings @ -No old charts were reviewed Differential Diagnosis (chest pain, altered mental status, abdominal pain women, abdominal pain men, vaginal bleeding, weakness, fever, dyspnea, syncope, headache, dizziness, GI bleed, back pain, seizure, CVA, palpatations, mental health, musculoskeletal)? @ -Differential Dizziness: Benign paroxysmal positional Vertigo, Meniere's disease, otitis media, acoustic neuroma, vertebrobasilar insufficiency, cerebellar stroke, encephalitis, hypovolemic, arrhythmia, coronary artery syndrome, anemia, this is not meant to be an all-inclusive list Differential Syncope: Valvular disease, hypertrophic cardiomyopathy, pulmonary embolism, tamponade, tachycardia, bradycardia, NH, hypovolemia, hemorrhage, dissection, anemia, intracranial hemorrhage, seizure, hypoglycemia, carbon monoxide poisoning, this is not meant to be an all-inclusive list. EKG interpreted by me (3pts min.). @ -Sinus tachycardia without ST deviation T wave inversion. Ventricular rate 104 bpm, SHREYAS 155 ms, QRS duration 98 ms, QTc 399 ms. X-rays interpreted by me (1pt min.). @ -None done CT interpreted by me (1pt min.). @ -Brain CT shows no acute intracranial process. Head/neck CTA shows no evidence of JOHANNY dissection, stenosis, intracranial stenosis/aneurysm. Enlarged right paratracheal lymph node noted. U/S interpreted by me (1pt. min.). @ -None done What testing was considered but not performed or refused? (CT, X-rays, U/S, labs)? Why? @ -None What meds were considered but not given or refused? Why? @ -None Did you discuss the management of the patient with other professionals (ren irby i.e. , PA, DIRECTOR PARK, lab, RT, psych nurse, pediatric social worker, deportation examiner, teacher, president and chief operating officer, medical case worker)? Give summary @ -No Was smoking cessation discussed for >3mins.? @ -No Was critical care preformed (if so, how long)? @ -No Were there social determinants of health that impacted care today? How? (Homelessness, low income, unemployed, alcoholism, drug addiction, transportation, low edu. Level, literacy, decrease access to med. care, senior care, rehab)? @ -No Was there de-escalation of care discussed even if they declined (Discuss DNR or withdrawal of care, Hospice)? DNR status @ -No What co-morbidities impacted this encounter? (DM, HTN, Smoking, COPD, CAD, Cancer, CVA, ARF, Chemo, Hep., AIDS, mental health diagnosis, sleep apnea, morbid obesity)? @ -None Was patient admitted / discharged? Hospital course, mention meds given and route, prescriptions, significant lab abnormalities, going to OR and other pertinent info. @ -Lab work shows mild hypokalemia 3.4. Otherwise unremarkable including negative troponin. Brain CT shows no acute intracranial process. Head/neck CTA shows no evidence of JOHANNY dissection, stenosis, intracranial stenosis/aneurysm. Enlarged right paratracheal lymph node noted. No concerning findings today to indicate possible cause of event or current symptoms. Advised follow-up with PCP for further workup and possible MRI. Discussed patient with Dr. John. Undiagnosed new problem with uncertain prognosis? @ -No Drug Therapy requiring intensive monitoring for toxicity (Heparin, Nitro, Insulin, Cardizem)? @ -No Were any procedures done? @ -No Diagnosis/symptom? @ -Syncopal episode Acute, or Chronic, or Acute on Chronic? @ -Acute Uncomplicated (without systemic symptoms) or Complicated (systemic symptoms)? @ -Complicated Side effects of treatment? @ -No Exacerbation, Progression, or Severe Exacerbation? @ -No Poses a threat to life or bodily function? How? (Chest pain, USA, NH, pneumonia, PE, COPD, DKA, ARF, appy, cholecystitis, CVA, Diverticulitis, Homicidal, Suicidal, threat to staff... and all critical care pts) @ -No - Lab Data Result diagrams: 12/19/24 10:41 12/19/24 10:41 Lab Results 12/19/24 12/19/24 12/19/24 Range/Units 10:41 10:41 10:41 WBC 10.6 (3.8-10.6) k/uL RBC 5.15 (4.30-5.90) m/uL Hgb 14.9 (13.0-17.5) gm/dL Hct 44.5 (39.0-53.0) % MCV 86.3 (80.0-100.0) fL MCH 29.0 (25.0-35.0) pg MCHC 33.6 (31.0-37.0) g/dL RDW 13.8 (11.5-15.5) % Plt Count 256 (150-450) k/uL MPV 7.4 Neutrophils % 71 % Lymphocytes % 21 % Monocytes % 5 % Eosinophils % 1 % Basophils % 1 % Neutrophils # 7.5 (1.3-7.7) k/uL Lymphocytes # 2.3 (1.0-4.8) k/uL Monocytes # 0.5 (0-1.0) k/uL Eosinophils # 0.1 (0-0.7) k/uL Basophils # 0.1 (0-0.2) k/uL PT 10.4 (10.0-12.5) sec INR 0.9 (<1.2) APTT 25.0 (22.0-30.0) sec Sodium 138 (137-145) mmol/L Potassium 3.4 L (3.5-5.1) mmol/L Chloride 98 (98-107) mmol/L Carbon Dioxide 32 H (22-30) mmol/L Anion Gap 8 mmol/L BUN 23 H (9-20) mg/dL Creatinine 0.81 (0.66-1.25) mg/dL Est GFR (CKD-EPI)AfAm >90 (>60 ml/min/1.73 sqM) Est GFR (CKD-EPI)NonAf >90 (>60 ml/min/1.73 sqM) Glucose 107 H (74-99) mg/dL Calcium 10.1 (8.4-10.2) mg/dL Total Bilirubin 0.3 (0.2-1.3) mg/dL AST 27 (17-59) U/L ALT 39 (4-49) U/L Alkaline Phosphatase 80 (38-126) U/L Troponin I (0.000-0.034) ng/mL Total Protein 7.2 (6.3-8.2) g/dL Albumin 4.2 (3.5-5.0) g/dL 12/19/24 Range/Units 10:41 WBC (3.8-10.6) k/uL RBC (4.30-5.90) m/uL Hgb (13.0-17.5) gm/dL Hct (39.0-53.0) % MCV (80.0-100.0) fL MCH (25.0-35.0) pg MCHC (31.0-37.0) g/dL RDW (11.5-15.5) % Plt Count (150-450) k/uL MPV Neutrophils % % Lymphocytes % % Monocytes % % Eosinophils % % Basophils % % Neutrophils # (1.3-7.7) k/uL Lymphocytes # (1.0-4.8) k/uL Monocytes # (0-1.0) k/uL Eosinophils # (0-0.7) k/uL Basophils # (0-0.2) k/uL PT (10.0-12.5) sec INR (<1.2) APTT (22.0-30.0) sec Sodium (137-145) mmol/L Potassium (3.5-5.1) mmol/L Chloride (98-107) mmol/L Carbon Dioxide (22-30) mmol/L Anion Gap mmol/L BUN (9-20) mg/dL Creatinine (0.66-1.25) mg/dL Est GFR (CKD-EPI)AfAm (>60 ml/min/1.73 sqM) Est GFR (CKD-EPI)NonAf (>60 ml/min/1.73 sqM) Glucose (74-99) mg/dL Calcium (8.4-10.2) mg/dL Total Bilirubin (0.2-1.3) mg/dL AST (17-59) U/L ALT (4-49) U/L Alkaline Phosphatase (38-126) U/L Troponin I <0.012 (0.000-0.034) ng/mL Total Protein (6.3-8.2) g/dL Albumin (3.5-5.0) g/dL Disposition Clinical Impression: Syncope Disposition: HOME SELF-CARE Condition: Good Instructions (If sedation given, give patient instructions): Syncope (ED) Is patient prescribed a controlled substance at d/c from ED?: No Referrals: Jacinto Schofield DO [Primary Care Provider] - 1-2 days Time of Disposition: 13:26
[2024-12-19 11:03] LABS: Basophils # (A) 0.1 k/uL (0-0.2); Basophils % (A) 1 %; Eosinophils # (A) 0.1 k/uL (0-0.7); Eosinophils % (A) 1 %; HCT 44.5 % (39.0-53.0); HGB 14.9 gm/dL (13.0-17.5); Lymphocytes # (A) 2.3 k/uL (1.0-4.8); Lymphocytes % (A) 21 %; MCHC 33.6 g/dL (31.0-37.0); MCV 86.3 fL (80.0-100.0); Mean Platelet Volume 7.4; Monocytes # (A) 0.5 k/uL (0-1.0); Monocytes % (A) 5 %; Neutrophils # (A) 7.5 k/uL (1.3-7.7); Neutrophils % (A) 71 %; Platelet Count 256 k/uL (150-450); RBC 5.15 m/uL (4.30-5.90); RDW 13.8 % (11.5-15.5); WBC 10.6 k/uL (3.8-10.6)
[2024-12-19 11:17] LABS: INR 0.9 (<1.2); Prothrombin Time 10.4 sec (10.0-12.5)
[2024-12-19 11:29] VITALS: RESP 18
[2024-12-19 11:29] LABS: ALT 39 U/L (4-49); AST 27 U/L (17-59); African American GFR (CKD) >90 (>60 ml/min/1.73 sqM); Albumin 4.2 g/dL (3.5-5.0); Alkaline Phosphatase 80 U/L (38-126); Anion Gap 8 mmol/L; Blood Urea Nitrogen 23 mg/dL (9-20); Calcium 10.1 mg/dL (8.4-10.2); Carbon Dioxide 32 mmol/L (22-30); Chloride 98 mmol/L (98-107); Glucose 107 mg/dL (74-99); Non-African American GFR(CKD) >90 (>60 ml/min/1.73 sqM); Potassium 3.4 mmol/L (3.5-5.1); Sodium 138 mmol/L (137-145); Total Bilirubin 0.3 mg/dL (0.2-1.3); Total Protein 7.2 g/dL (6.3-8.2)
--- NOTE | 2024-12-19 12:31 | CT ---
EXAMINATION TYPE: CT brain wo con CT DLP: 1231.60 mGycm, Automated exposure control for dose reduction was used. DATE OF EXAM: 12/19/2024 12:24 PM COMPARISON: None. CLINICAL INDICATION:Male, 39 years old with history of Syncopal episode with facial paresthesia, Sync opal episode with facial paresthesia TECHNIQUE: Brain: Multiple axial CT images of the brain were obtained without IV contrast. . Coronal and sagitta l reformats reviewed. FINDINGS: Brain: Extra-axial spaces: No abnormal extra-axial fluid collections. Ventricular system: Within normal limits Cerebral parenchyma: No acute intraparenchymal hemorrhage or mass effect. The bonds-white junction is well differentiated. Empty sella morphology. Cerebellum: Unremarkable. Mass effect: No evidence of midline shift. Intracranial vasculature: unremarkable Soft tissues: Normal. Calvarium/osseous structures: No depressed skull fracture. Paranasal sinuses and mastoid air cells: Clear Visualized orbits: Orbital contents are intact. IMPRESSION: No acute intracranial process. [facility], , 12/19/2024 12:29 PM
--- NOTE | 2024-12-19 12:52 | CT ---
EXAMINATION TYPE: CT angio head neck CT DLP: 607.70 mGycm, Automated exposure control for dose reduction was used. DATE OF EXAM: 12/19/2024 12:39 PM COMPARISON: CT brain of the same date. CLINICAL INDICATION:Male, 39 years old with history of Syncopal episode with facial paresthesia; PHH, Syncope with facial paresthesia TECHNIQUE: Axially acquired helical CT angiogram of the head and neck was obtained with contrast util izing 75 cc of Isovue-370 administered intravenously. Axial images are supplemented with 3D reconstru ctions which were post-processed at an independent workstation. NASCET criteria used. FINDINGS: CTA HEAD: No evidence of acute intracranial hemorrhage, mass effect, or midline shift. The ventricles, sulci, a nd cisterns are unremarkable. The visualized portions of the internal carotid arteries, middle cerebral arteries, anterior cerebral arteries, and posterior cerebral arteries are patent. The basilar and vertebral arteries are patent. CTA NECK: Right Carotid System: The common carotid artery and external carotid artery are patent. The carotid bifurcation demonstrate s no evidence of hemodynamically significant stenosis. The remaining portions of the internal carotid artery demonstrate normal size without significant narrowing. Left Carotid System: The common carotid artery and external carotid artery are patent. The carotid bifurcation demonstrate s no evidence of hemodynamically significant stenosis. The remaining portions of the internal carotid artery demonstrate normal size without significant narrowing. Vertebral arteries are patent without evidence hemodynamically significant stenosis. There is a three-vessel aortic arch. The origins of the great vessels are patent. No evidence of hemo dynamically significant stenosis. Enlarged right paratracheal lymph node measuring up to 1.5 cm. IMPRESSION: 1. No evidence of dissection of the cervical internal carotid arteries or vertebral arteries or any e vidence of significant stenosis at the carotid bifurcations. 2. No evidence of high-grade stenosis or intracranial aneurysm. 3. Nonspecific enlarged right paratracheal lymph node. [facility], , 12/19/2024 12:49 PM
[2024-12-19 13:34] VITALS: BP 134/97; PULSE 93
== END 2024-12-19 13:34 | disposition home or self-care (01) ==
LOC: EC 09:49
DX: R55 Syncope and collapse (principal); R00.0 Tachycardia, unspecified; R59.9 Enlarged lymph nodes, unspecified; Z88.0 Allergy status to penicillin
CPT/HCPCS: 36415; 93005; 80053; 84484; 85025; 85610; 85730; 70496; 70450; 70498; 99284; Q9967